=== PATIENT | female | born 1940 ===

== ENCOUNTER 2020-01-19 11:24 | Outpatient (CLI) | payer OTHER ==
[~2020-01-19 11:24] MED LIST: ADULT LOW DOSE81 M1 PO; GABAPENTIN PO; LEVOTHYROXINE25 MCG PO; LIPITOR20 MG PO; MEMANTINE HCL10 MG PO; NORVASC5 MG PO; PRESERVISION PO
== END 2020-01-19 13:16 | disposition home or self-care (01) ==
LOC: MAMO-SONO 11:24
PROVIDERS: ATTEND Surgery
DX: N64.59 Other signs and symptoms in breast (principal); R92.8 Other abnormal and inconclusive findings on diagnostic imaging of breast; Z12.31 Encounter for screening mammogram for malignant neoplasm of breast

== ENCOUNTER 2020-01-24 08:29 | Outpatient (CLI) | payer OTHER | END 2020-01-24 08:57 | disposition home or self-care (01) | LOC: TOM 08:29 | PROVIDERS: ATTEND Surgery | DX: K57.90 Diverticulosis of intestine, part unspecified, without perforation or abscess without bleeding (principal); C43.59 Malignant melanoma of other part of trunk; C79.89 Secondary malignant neoplasm of other specified sites | CPT/HCPCS: 71270; 74178; Q9965 ==

== ENCOUNTER 2020-01-25 05:30 | Day surgery (SDC) | payer OTHER | END 2020-01-25 10:40 | disposition home or self-care (01) | LOC: CIR.AMB 05:30 | PROVIDERS: ATTEND Surgery | DX: L82.1 Other seborrheic keratosis (principal); Z20.828 Contact with and (suspected) exposure to other viral communicable diseases ==

== ENCOUNTER → 2020-02-12 | Outpatient (CLI) | payer OTHER | END | disposition home or self-care (01) | LOC: NUCLEAR 02-09 07:00 | PROVIDERS: ATTEND Surgery | DX: C43.59 Malignant melanoma of other part of trunk (principal); C79.89 Secondary malignant neoplasm of other specified sites | CPT/HCPCS: 78815; A9552 ==

== ENCOUNTER → 2021-02-26 | Outpatient (CLI) | payer OTHER | END | disposition home or self-care (01) | LOC: NUCLEAR 07:25 | DX: C43.8 Malignant melanoma of overlapping sites of skin (principal) | CPT/HCPCS: 78815; A9552 ==

== ENCOUNTER 2021-05-07 08:32 | Outpatient (CLI) | payer OTHER | END 2021-05-07 09:00 | disposition home or self-care (01) | LOC: TOM 08:32 | DX: C43.9 Malignant melanoma of skin, unspecified (principal) ==